=== PATIENT | male | born 1965 | race Caucasian/White ===

== ENCOUNTER 2016-11-14 07:57 | Day surgery (SDC) | payer OTHER ==
[2016-11-08 10:04] VITALS: BMI 22.9
[2016-11-14] MEDS ORDERED: LIDOCAINE HCL/PF 2% SDV 5ML VIAL ONE (08:08)
[2016-11-14] MEDS ORDERED: PROPOFOL 20 ML ONE ×2 (08:08)
[2016-11-14 08:25] VITALS: PULSE 90
[2016-11-14 10:31] VITALS: BP 112/65
[2016-11-14 10:34] VITALS: TEMP 98.1
== END 2016-11-14 10:33 | disposition home or self-care (01) ==
LOC: FASU-ENDO 07:57
PROVIDERS: ATTEND Internal Medicine Gastroenterology
PROC: 0DJD8ZZ Inspection of Lower Intestinal Tract, Via Natural or Artificial Opening Endoscopic (ICD-10-PCS; principal; 2016-11-14 09:33)
DX: Z12.11 Encounter for screening for malignant neoplasm of colon (principal)